=== PATIENT | female | born 1950 | race Caucasian/White ===

== ENCOUNTER 2018-07-29 04:55 | Inpatient (IN) ==
--- NOTE | 2018-07-26 11:07 | Anesthesiology Consultation ---
Date of Service July 26, 2018 Assessment & Plan (1) Encounter for pre-operative examination: - PCP: 07/23/18: Surgeon made aware by PCP of "increased risk for surgery. I recommend tight glycemic control in the perioperative period to prevent infection and complications. Patient has been referred to [facility] diabetes clinic for glucose control but will likely not get established with them until after her surgery. Pending Dr. Carvajal approval for surgery at current A1C, patient is optimized but at high risk for surgery." Per surgeon, aware of above and wish to proceed with surgery as scheduled - Cardio: 07/27/18: chronic stable diastolic heart failure.. well compensated. "low cardiovascular risk. She does not need further testing at this time." - Check BSG AM DOS Chart Review Chart Review: Acceptable Risk for Surgery and Patient seen in Pre Admission Testing Teaching & Discussion Pre-Anesthesia Teaching/Discussion Notes: Instructed NPO after midnight before surgery,except medications with 15 cc of water. Medication instructions provided according to the PAT guidelines. History Surgery Operation Date: 07/29/18 07:15 Proposed Procedures p Left Laparoscopic Hand Assisted Nephrectomy - Marcial Carvajal MD Height/Weight Height: 5 ft 2 in Weight: 117.9 kg Allergies Allergy/AdvReac Type Severity Reaction Status Date / Time bacitracin Allergy SWELLING Verified 07/23/18 14:56 [From Neosporin FROM EYE ([id number])] DROPS neomycin Allergy SWELLING Verified 07/23/18 14:56 [From Neosporin FROM EYE ([id number])] DROPS polymyxin B Allergy SWELLING Verified 07/23/18 14:56 [From Neosporin FROM EYE ([id number])] DROPS Medications Home Medications Medication Instructions Recorded Confirmed Last Taken albuterol sulfate [Ventolin HFA] 2 puff INHALATION Q4H PRN 07/26/18 07/26/18 Unknown amlodipine 5 mg PO DAILY 07/26/18 07/26/18 Unknown ascorbic acid (vitamin C) [Vitamin 1 g PO DAILY 07/26/18 07/26/18 Unknown C] aspirin 81 mg PO DAILY 07/26/18 07/26/18 Unknown calcium carbonate-vitamin D3 1 tab PO DAILY 07/26/18 07/26/18 Unknown [Caltrate 600 + D] ferrous gluconate 324 mg PO DAILY 07/26/18 07/26/18 Unknown fluticasone propionate 1 spray INTRANASAL DAILY 07/26/18 07/26/18 Unknown glimepiride 4 mg PO QAM 07/26/18 07/26/18 Unknown insulin glargine [Lantus U-100 10 unit SUBCUT HS 07/26/18 07/26/18 Unknown Insulin] levothyroxine 125 mcg PO QAM 07/26/18 07/26/18 Unknown liraglutide [Victoza 2-Elliot] 1.2 mg SUBCUT DAILY 07/26/18 07/26/18 Unknown losartan 100 mg PO DAILY 07/26/18 07/26/18 Unknown metformin 1,000 mg PO BID 07/26/18 07/26/18 Unknown naproxen 500 mg PO BID PRN 07/26/18 07/26/18 Unknown rosuvastatin 5 mg PO HS 07/26/18 07/26/18 Unknown torsemide 40 mg PO DAILY 07/26/18 07/26/18 Unknown Past Medical History Medical History CHF (congestive heart failure) DIASTOLIC CKD (chronic kidney disease) BASELINE CREATININE 1.4-1.7 RANGE PER CHART REVIEW Cancer of kidney History of bronchitis NO RECENT ISSUES; INHALER PRN Hyperlipidemia Hypertension Hypothyroidism IDDM (insulin dependent diabetes mellitus) Morbid obesity Past Surgical History Surgical History History of carpal tunnel release S/P trigger finger release Past Anesthesia History No Hx of Anesthesia Complications and No Family Hx of Anesthesia Complications History of PONV No Motion Sickness Screening History of Motion Sickness: No Social History Smoking Status: Former smoker tobacco type: cigarettes Smoking cigarettes per day: QUIT 30 YEARS AGO Do You Dip or Chew Tobacco: No Hx Alcohol Use: No Hx Substance Use: No substance use type: does not use Exercise / Class Metabolic Activity III < 4 Walking/Shop/Light housework Review of Systems Patient denies chest pain, shortness of breath, cough, wheezing, palpitations. Physical Exam Vital Signs VITALS BP 145/78 P 58 TEMP 98.3 SP02 95%RA RESP 18 PHYSICAL Full neck and c-spine range of motion. Full TMJ range of motion. TMD 3 finger breaths Mallampati Score 3 Dentition: full dentures on upper; partial on lower Lungs: clear throughout to auscultation Cardiac: regular rate and rhythm, no murmurs noted Spine: normal Carotid arteries: negative bruit Extremities: no edema Testing Electrocardiogram Date: 07/26/18 Findings: + NSR @ (63) Chest X-Ray Date: 07/26/18 Linear subsegmental right perihilar opacities suggest atelectasis/scarring. Minimal atelectasis/scarring noted about the lateral left midlung. Cardiomegaly without acute process. Chronic right hemidiaphragmatic elevation. Echocardiogram Date: 01/05/17 LVEF 77%. No RWMA. Mild LAE. Grade I-II DD. No significant valvular disease. Laboratory Results 07/26/18 11:20 Blood Type A Positive 07/26/18 11:20 Antibody Screen NEGATIVE 07/26/18 11:20 Urine Color Yellow 07/26/18 11:20 Urine Appearance Clear (Clear) 07/26/18 11:20 Urine pH 5.5 (4.5-7.5) 07/26/18 11:20 Ur Specific [place] 1.012 (1.000-1.030) 07/26/18 11:20 Urine Protein Trace (Negative) H 07/26/18 11:20 Urine Glucose (UA) Negative (Negative) 07/26/18 11:20 Urine Ketones Negative (Negative) 07/26/18 11:20 Urine Nitrite Negative (Negative) 07/26/18 11:20 Ur Leukocyte Esterase 1+ (Negative) H 07/26/18 11:20 Urine WBC (Auto) 5-10 /hpf (0-5) H 07/26/18 11:20 Urine RBC (Auto) 0-4 /hpf (0-4) 07/26/18 11:20 U Hyaline Cast (Auto) 1-5 /lpf (0-5) 07/26/18 11:20 U Epithel Cells (Auto) >30 /lpf (0-5) H 07/26/18 11:20 Urine Bacteria (Auto) Negative (Negative) 07/26/18 11:20 07/26/18 11:20 Urine Culture - Final Urine,Clean Catch More than three types of organisms present, all high co unts mixed probable skin jude - No further identifications or sensitivities to follow. 07/23/18 WBC 8.10 H/H 11.5/36.4 PLT 206 HGBA1C 9.0% (surgeon made aware)
--- NOTE | 2018-07-26 11:15 | PAT Medication Instructions ---
Medication Instructions Date of Service July 26, 2018 Home Medications albuterol sulfate [Ventolin HFA] 2 puff INHALATION Q4H PRN amlodipine 5 mg PO DAILY ascorbic acid (vitamin C) [Vitamin 1 g PO DAILY aspirin 81 mg PO DAILY calcium carbonate-vitamin D3 1 tab PO DAILY ferrous gluconate 324 mg PO DAILY fluticasone propionate 1 spray INTRANASAL DAILY glimepiride4 mg PO QAM insulin glargine [Lantus U-100 10 unit SUBCUT HS levothyroxine 125 mcg PO QAM liraglutide [Victoza 2-Elliot] 1.2 mg SUBCUT DAILY losartan 100 mg PO DAILY metformin 1,000 mg PO BID naproxen 500 mg PO BID PRN rosuvastatin 5 mg PO HS torsemide 40 mg PO DAILY ASK your surgeon for instructions naproxen 500 mg PO BID PRN ASK your prescriber and surgeon aspirin 81 mg PO DAILY DO NOT take the morning of surgery ascorbic acid (vitamin C) [Vitamin 1 g PO DAILY calcium carbonate-vitamin D3 1 tab PO DAILY ferrous gluconate 324 mg PO DAILY glimepiride4 mg PO QAM losartan 100 mg PO DAILY metformin 1,000 mg PO BID torsemide 40 mg PO DAILY Take morning of surgery With a small sip of water, OTHERWISE NOTHING TO EAT OR DRINK AFTER MIDNIGHT: albuterol sulfate [Ventolin HFA] 2 puff INHALATION Q4H PRN (use if needed; please bring with you to hospital day of surgery if possible) amlodipine 5 mg PO DAILY fluticasone propionate 1 spray INTRANASAL DAILY levothyroxine 125 mcg PO QAM liraglutide [Victoza 2-Elliot] 1.2 mg SUBCUT DAILY Take evening before surgery albuterol sulfate [Ventolin HFA] 2 puff INHALATION Q4H PRN (if needed) insulin glargine [Lantus U-100 10 unit SUBCUT HS metformin 1,000 mg PO BID rosuvastatin 5 mg PO HS Other Notes If you have any questions please call us at [phone] or [phone] or [phone] or [phone]
[2018-07-26 12:40] LABS: BUN Creatinine Ratio 22.1 (10-20); Est GFR (African American) 36.9; Est GFR (Non-African American) 31.8; Potassium 4.2 mmol/L (3.5-5.1)
[2018-07-26 12:52] LABS: Appearance Urine Clear (Clear); Bacteria Urine Automated Negative (Negative); Bilirubin Urine Negative (Negative); Blood Urine Negative (Negative); Color Urine Yellow; Epithelial Cell Urine Auto >30 /lpf (0-5); Glucose Urine UA Negative (Negative); Ketones Urine Negative (Negative); Leukocyte Esterase Urine 1+ (Negative); Nitrite Urine Negative (Negative); Protein Urine Trace (Negative); RBC Urine Automated 0-4 /hpf (0-4); Specific Gravity Urine 1.012 (1.000-1.030); Urobilinogen Urine Negative (Negative); pH Urine 5.5 (4.5-7.5)
--- NOTE | 2018-07-27 08:45 | XRay Report ---
XR chest Pre-admission PA/Lat HISTORY: 68 years-old Female pat preoperative exam. No acute chest complaints COMPARISON: Chest CT 06/10/2018 TECHNIQUE: PA and lateral views of the chest FINDINGS: Chronic right hemidiaphragmatic elevation. Cardiac silhouette is enlarged, unchanged. Linear subsegme ntal right perihilar opacities suggest atelectasis/scarring. There is no pneumothorax, pleural effusi on, focal airspace consolidation or overt pulmonary edema. Minimal atelectasis/scarring noted about t he lateral left midlung. Degenerative changes of the shoulders and spine. IMPRESSION: 1. Cardiomegaly without acute process. 2. Chronic right hemidiaphragmatic elevation. The above report was generated using voice recognition software. It may contain grammatical, syntax o r spelling errors. Electronically signed by: Sim Avila M.D. 07/27/2018 8:44 AM
[2018-07-29] MEDS ORDERED: CEFAZOLIN 3000MG 65 ML IV SCH (06:00)
[2018-07-29] MEDS ORDERED: LR 15ML/HR IV SCH (06:00)
[2018-07-29] MEDS ORDERED: ACETAMINOPHEN 1000 MG/100 ML IV IV SCH (06:00)
[2018-07-29] MEDS ORDERED: BUPIVACAINE 0.5 % 5 MG/1 ML MPF 30ML VIAL ONE (06:52)
--- NOTE | 2018-07-29 06:59 | History & Physical Bridge Note ---
Date of Service July 29, 2018 History & Physical Bridge Note I have examined the patient, reviewed the History & Physical and in the interval since the performance of the History & Physical I have noted the following changes of clinical significance: no changes noted
[2018-07-29] MEDS ORDERED: ATROPINE SULFATE 0.1 MG/ML 10ML SYR IV PRN (07:04)
[2018-07-29] MEDS ORDERED: ONDANSETRON INJ 2 MG/ML 2 ML VIAL IV PRN (07:04)
[2018-07-29] MEDS ORDERED: PHENYLEPHRINE 100MCG/ML 5ML SYR IV PRN (07:04)
[2018-07-29] MEDS ORDERED: PROMETHAZINE HCL 12.5 MG in SODIUM CHLORIDE 0.9% 50 ML IV PRN (07:04)
[2018-07-29] MEDS ORDERED: ePHEDrine sulfate 50 MG/ML AMP IV PRN (07:04)
[2018-07-29] MEDS ORDERED: fentaNYL citrate 100 MCG/2 ML VIAL ONE ×2 (07:07→10:02)
[2018-07-29] MEDS ORDERED: LIDOCAINE 2% JELLY 5 ML TUBE ONE (07:17)
[2018-07-29] MEDS ORDERED: TISSEEL FIBRIN SEALANT 10ML TOP ONE (08:21)
[2018-07-29] MEDS ORDERED: ROCURONIUM BROMIDE 10 MG/ML 5 ML VIAL ONE (09:25)
[2018-07-29] MEDS ORDERED: GLYCOPYRROLATE 0.2 MG/ML VIAL ONE (09:25)
[2018-07-29] MEDS ORDERED: ePHEDrine sulfate 50 MG/ML SYR ONE (09:25)
[2018-07-29] MEDS ORDERED: SUCCINYLCHOLINE CHLORIDE 20 MG/ML 10 ML VIAL ONE (09:25)
[2018-07-29] MEDS ORDERED: ONDANSETRON INJ 2 MG/ML 2 ML VIAL ONE (09:25)
[2018-07-29] MEDS ORDERED: LIDOCAINE HCL 2% 2 ML VIAL/AMP(20MG/ML) INFIL ONE (09:25)
[2018-07-29] MEDS ORDERED: NEOSTIGMINE METHYLSULFATE 5 MG/5 ML SYR ONE (09:25)
[2018-07-29] MEDS ORDERED: PROPOFOL IV EMULSION 10 MG/ML 20 ML VIAL IV ONE (09:25)
--- NOTE | 2018-07-29 10:02 | Operative Report ---
Post Operative Report Pre & Post Diagnosis Operation Date: 07/29/18 07:15 Pre-Op Diagnosis: Left Renal Mass Post-Op Diagnosis: Left Renal Mass Procedure Operation Date: 07/29/18 07:15 Actual Procedures p Left Laparoscopic Hand Assisted Readical Nephrectomy, Retroperitoneal Dissection(Left) - Marcial Carvajal MD Surgeon Marcial Carvajal MD [employer] Entry JOHN Duran Estimated Blood Loss 50 Findings Consistent with Post-Op Diagnosis Specimens L kidney, L retroperitoneal tissue Description of Procedure Left hand assisted lap nephrectomy, left retroperitoneal dissection I attest to the content of the Intraoperative Record and any orders documented therein. Any exceptions are noted below.
[2018-07-29] MEDS ORDERED: NovoLIN-R INSULIN PER UNIT CHARGE ONE (10:21)
[2018-07-29] MEDS: fentaNYL citrate 100 MCG/2 ML VIAL IV PRN ×4 (10:24→10:40)
[2018-07-29] MEDS ORDERED: NovoLIN-R INSULIN PER UNIT CHARGE IV STA (10:28)
[2018-07-29] MEDS ORDERED: NovoLIN-R INSULIN PER UNIT CHARGE SQ STA (10:28)
[2018-07-29 10:53] LABS: Hematocrit (blood only) 30.7 % (37-47); Hemoglobin 10.1 g/dL (12.0-16.0); Mean Corpuscular Volume 88.2 fL (80-100); Mean Platelet Volume 10.2 fL (7.4-10.4); Platelet Count 179 K/uL (130-400); RDW Coefficient of Variation 13.8 % (11.5-14.5); RDW Standard Deviation 44.8 fL (36.4-46.3); Red Blood Count 3.48 M/uL (4.2-5.4); White Blood Count 14.36 K/uL (4.8-10.8)
[2018-07-29] MEDS: HYDROmorphone INJ 1 MG/ML SYRINGE IV PRN ×6 (10:54→11:25)
[2018-07-29 10:59] LABS: Mean Corpuscular Hgb Conc 32.9 g/dL (32-36)
[2018-07-29 11:19] LABS: BUN Creatinine Ratio 20.4 (10-20); Calcium 9.3 mg/dl (8.5-10.1); Creatinine Clr Calc Pharmacy 40.4 ml/min; Est GFR (African American) 33.8; Est GFR (Non-African American) 29.2
[2018-07-29 11:28] LABS: Basophils # (auto) 0.01 K/uL (0-0.2); Basophils % (auto) 0.1 %; Eosinophils # (auto) 0.05 K/uL (0-0.5); Eosinophils % (auto) 0.3 %; Immature Granulocytes # (auto) 0.05 K/uL (0.00-0.02); Immature Granulocytes % (auto) 0.3 %; Lymphocytes # (auto) 1.89 K/uL (1.2-3.4); Lymphocytes % (auto) 13.2 %; Monocytes # (auto) 0.52 K/uL (0.11-0.59); Monocytes % (auto) 3.6 %; Neutrophils # (auto) 11.84 K/uL (1.4-6.5); Neutrophils % (auto) 82.5 %
[2018-07-29] MEDS ORDERED: ALBUTEROL HFA 8 GM INHALER INH PRN (11:44)
[2018-07-29] MEDS ORDERED: ACETAMINOPHEN 1,000 MG/100 ML VIAL IV PRN (11:44)
[2018-07-29] MEDS ORDERED: OXYCODONE HCL IR 5 MG TAB (IMMEDIATE RELEASE) PO PRN (11:44)
[2018-07-29] MEDS ORDERED: NALOXONE HCL 0.4 MG/1 ML VIAL/CARP IV PRN (11:44)
[2018-07-29] MEDS ORDERED: PHARMACY GLYCEMIC MGMT CONSULT PRN (12:12)
--- NOTE | 2018-07-29 12:33 | Anesthesiology Progress Note ---
Date of Service July 29, 2018 Anesthesia Post Procedure Vital Signs Vital Signs: Temp Pulse Pulse Resp BP BP Pulse Ox 07/29/18 12:24 36.5 C 54 L 16 137/76 96 07/29/18 11:55 36.5 C 53 L 18 141/83 H 93 07/29/18 10:42 44 L 15 147/62 H 90 07/29/18 10:40 52 L 14 99 07/29/18 10:36 46 L 21 115/40 L 95 07/29/18 10:35 62 21 07/29/18 10:32 51 L 21 127/46 L 94 07/29/18 10:30 60 25 H 99 07/29/18 10:26 49 L 14 137/48 L 97 07/29/18 10:25 57 L 18 95 07/29/18 10:21 61 28 H 127/74 95 07/29/18 10:20 62 21 07/29/18 10:16 77 18 130/68 100 07/29/18 10:15 65 23 97 07/29/18 10:14 36.6 C 68 67 22 149/88 H 149/88 H 99 07/29/18 10:13 67 22 07/29/18 05:52 36.9 C 70 20 180/75 H 97 Pain Intensity Left Lateral Abdomen: Pain Intensity: 7 Notes Mental Status: alert / awake / arousable Patient Amnestic to Procedure: Yes Nausea / Vomiting: adequately controlled Pain: adequately controlled Airway Patency, RR, SpO2: stable & adequate BP & HR: stable & adequate Hydration State: stable & adequate Anesthetic Complications: no major complications apparent Notes: Pt doing well. BG improved after 5 units of regular insulin. VSS.
--- NOTE | 2018-07-29 12:40 | Pharmacy Report ---
Glycemic Control Consultation - Date of Service July 29, 2018 - Scope Scope: Glycemic Pharmacist consulted by JOHN Roth on 07/29/18 for glycemic control and to write orders per [facility] inpatient glycemic control protocol - Objective Weight: 133.838 kg Accuchecks BSG (last 24hrs): 07/29/18 07/29/18 07/29/18 05:46 10:17 10:30 Glucose 219 H POC Glucose 173 H 244 H 07/29/18 11:20 Glucose POC Glucose 240 H Laboratory Data (last 24hrs): 07/29/18 10:30 Potassium 4.0 Carbon Dioxide 25 Anion Gap 9.0 Creatinine 1.76 H Est Cr Clr Drug Dosing 40.4 - Recent Pertinent Medications Outpatient Anti-diabetic Regimen: * Lantus 10 units SQ HS * Victoza 1.2mg SQ Daily * Metformin 1g PO BID * Glimepiride 4mg PO daily * A1c ordered Risk Factors for Insulin Resistance: * Recent Surgery: s/p nephrectomy * Diet:Clear liquid - Assessment & Plan Assessment & Plan: ASSESSMENT: * 68 year old female, s/p nephrectomy and hyperglycemic. Type 2 diabetic on orals and insulin and injectable antidiabetic medications at home. Patient on clear liquid diet. * Patient given 5 units Regular insulin IV at 1030- no change in blood sugar * Patient requires basal bolus insulin, will do tight CF and CR to begin based on weight for hyperglycemia not responding to IV insulin * Oral agents are not recommended for inpatient use d/t drug interactions, changing PO intake, and difficulty titrating for acute hyper/hypoglycemia. ADA recommends re-initiating outpatient oral agents 1-2 days prior to discharge if/when appropriate if they were held on admission. * ADA & AACE recommend a goal blood sugar range 140-180 mg/dl for the majority of critically ill & non-critically ill patients. However, more stringent targets may be selected in individual cases. Will utilize more stringent goal of 110-140mg/dl based on patient age & comorbidities. Additionally, tighter glycemic control is warranted to facilitate wound/infection healing. PLAN FOR INPATIENT GLYCEMIC CONTROL: * Holding outpatient oral diabetes medications * Basal insulin * Lantus 10 units SQ HS and an additional dose x1 NOW * Bolus insulin * NovoLog per scale ACHS or Q6hrs while NPO * Goal Range: Low 110 mg/dL - High 140 mg/dL * Correction Factor: 15 mg/dL/unit * Nutritional / Prandial insulin per carb ratio of 1 unit per 5 grams CHO consumed * Please note that the plan above was derived based on current level of insulin resistance and hospital stress. These recommendations are appropriate for inpatient admission only. Plan of care upon discharge will need to be reassessed to avoid potential outpatient hypo/hyperglycemia. Thank you.
[2018-07-29] MEDS: LACTATED RINGER'S 1,000 ML IV SCH ×2 (12:44→20:52)
[2018-07-29] MEDS ORDERED: CARBOHYDRATES FOR HYPOGLYCEMIA PO PRN (12:45)
[2018-07-29] MEDS ORDERED: GLUCOSE 10 TABS/TUBE PO PRN (12:45)
[2018-07-29] MEDS ORDERED: GLUCOSE 40% GEL 15 GM TUBE PO PRN (12:45)
[2018-07-29] MEDS: SODIUM CHLORIDE 0.9% 1000ML 1,000 ML IV SCH (12:45)
[2018-07-29] MEDS ORDERED: DEXTROSE 50% 50 ML SYRINGE IV PRN (12:45)
[2018-07-29] MEDS ORDERED: GLUCAGON FOR INJ 1 MG VIAL IM PRN (12:45)
[2018-07-29] MEDS ORDERED: INSULIN GLARGINE SOLOSTAR 100 UNITS/ML 3 ML PEN SC ONE (12:45)
[2018-07-29] MEDS ORDERED: COUGH DROP (SUGAR FREE) LOZ 24 LOZ/1 BOX BUCCAL ONE (12:54)
[2018-07-29 13:02] LABS: Partial Thromboplastin Ratio 0.8; Prothrombin Time 10.5 Seconds (9.0-12.0)
--- NOTE | 2018-07-29 13:14 | Operative Report ---
DATE OF OPERATION: 07/29/2018 PREOPERATIVE DIAGNOSIS: Left central, 7 cm renal mass with bony lesions, no cancer in bone on biopsy. POSTOPERATIVE DIAGNOSIS: Left central, 7 cm renal mass with bony lesions, no cancer in bone on biopsy. PROCEDURES: Left-sided hand-assisted laparoscopic radical nephrectomy and retroperitoneal dissection. SURGEON: Marcial Carvajal MD PORTABLE SAWMILL OPERATOR: JOHN Roth. Charge Loader is present throughout the case for management of the laparoscopic camera, passage of instruments, retraction and assistance with closure as well as general patient's safety. ESTIMATED BLOOD LOSS: 50 mL. IV FLUIDS: 1200 mL crystalloid. URINE OUTPUT: 75 mL. SPECIMENS SENT TO PATHOLOGY: Left kidney and proximal ureter, left retroperitoneal tissue. DRAINS LEFT IN PLACE: Include a Garcia catheter to gravity drainage. ANESTHESIA: General anesthesia with endotracheal intubation plus local at port sites. FINDINGS: Excellent hemostasis after completion of case, indurated left lower pole of kidney. Well-skeletonized external iliac and retroperitoneal plane of dissection after completion of case. COMPLICATIONS: None. BRIEF HISTORY: Ms. Benitez is a pleasant 68-year-old female who I have seen due to a recent diagnosis of a large left lower pole renal mass felt to be suspicious for renal cell carcinoma invading a segmental vessels but without clear renal vein involvement. The patient is also noted to have bony lesions which were felt to be suspicious for metastasis on CT scan and bone scan. A CT scan of the chest demonstrated 5 mm nodules, not overly suspicious for metastasis. The patient underwent a biopsy of her bone lesions at an outside center which demonstrated no evidence of viable carcinoma. She is here today for a left-sided hand-assisted laparoscopic radical nephrectomy. She understands that it is still quite possible that she has metastatic disease to the bone in which case nephrectomy would still be indicated in a debulking fashion. Please see H and P for further details. Intravenous Ancef is provided for antibiotic coverage and SCDs used for DVT prophylaxis. Intravenous Tylenol was provided preoperatively to assist with perioperative analgesia. DESCRIPTION OF PROCEDURE: The patient was properly identified and brought into the operative suite after identification of appropriate consent on the chart. General anesthesia with endotracheal intubation was initiated. The patient was prepped and draped in standard fashion for this procedure. frame hand-out procedure was followed. All pressure points were gently padded and an axillary roll was placed. A Mireles incision was made in the left lower quadrant and brought down through the patient's copious subcutaneous tissues to the fascia of the external oblique. This was divided and the abdomen was sharply entered at the level of the peritoneum using Metzenbaum scissors and DeBakey forceps. No evidence of any injury to the bowel was appreciated on entry to the abdominal cavity. The remaining incision was extended over the surgeon's finger and a GelPort hand-assisted port was placed. Abdomen was insufflated through the Gelport and a laparoscopic examination was performed. This demonstrated no worrisome anatomic variations or evidence of metastatic disease. No intraabdominal adhesions were noted. Two 12 mm ports were placed in the midclavicular line and dissection was initiated. The white line of Toldt was incised laterally to allow for medial mobilization of the descending colon. Lateral attachments of the spleen were taken to allow for medial mobilization as well. The retroperitoneum was exposed and the ureter was identified at the level where crossed the iliac vessels. Iliacs were noted to be a relatively bear after completion with all the tissue associated with the common and external iliacs being incorporated with the patient's specimen. Dissection was carried cephalad until a single renal artery and vein were visualized. The renal vein was very closely inspected and noted to have no evidence of any tumor thrombus within it. Attempts at dissecting the artery free from the vein met with resistance due to dense adhesive tissues at the level of the hilum. After this was attempted for some time, it was felt to be safer to take the hilum en bloc. Again, lack of renal vein thrombus was appreciated. Hilum was circumscribed and taken using a 45 mm vascular staple load. After this was complete, the lateral aspects of the kidney were dissected free using a Harmonic scalpel. The plane of dissection was carried over the cephalad aspect of the kidney and a vascular staple load was used to free the adrenal gland from the kidney seeing that there was no upper pole involvement from the patient's malignancy. After the remaining cephalad attachments were taken, attention was turned to the ureter and gonadal vessels. These were clipped and divided with the remaining fatty tissue being divided using the Harmonic scalpel. This was taken relatively deep within the pelvis seeing the patient's small internal body stature. The kidney was then removed from the surgical field and passed off for pathologic analysis. Abdomen was inspected and the patient's pelvic dissection was noted to demonstrate no significant residual fatty tissue or retroperitoneal tissue. It was suspected that the keith tissue had been taken in association with the specimen. At the level of the aorta, inferior to the hilum, some remaining retroperitoneal fatty/keith tissue was noted. Using clips and the Harmonic scalpel, this was dissected free from the hilar bed and sent as a separate pathologic specimen for a left retroperitoneal tissue. After this was complete, excellent hemostasis was visualized. The surgical field including the adrenal bed and renal hilum as well as the plane of dissection, the ureter were covered with Tisseel tissue sealant. The colon and spleen were then returned to their normal anatomic locations. Ports and hand port were removed and excess carbon dioxide gas was removed from the abdomen. The 12 mm ports were closed using a 0 Vicryl suture on a UR-6 needle at the level of the fascia. The hand port was closed after removing of flexion from the table in 2 layers with an 0 Vicryl suture being used on the deep layers of the abdominal musculature and a #1 Vicryl suture being used at the fascia of the external oblique. The patient's inferior epigastric vessel was noted to be minimally lacerated and bleeding intermittently and therefore this was tied off using 2-0 Vicryl sutures prior to completion of the closure. Remaining local anesthetic was provided and the subcutaneous tissues were closed using a 3-0 Vicryl suture. Skin was closed using 4-0 Monocryl with Dermabond at the level of the skin. The patient was replaced in a normal supine position and anesthesia was reversed. The patient was transferred to the recovery room in stable condition. FOLLOWUP CARE: The patient will be admitted to the floor for standard postoperative management. I attest to the content of the Intraoperative Record and any orders documented therein. Any exception s are noted below.
[2018-07-29] MEDS: INSULIN ASPART 100 UNITS/ML 3 ML PEN SC SCH ×3 (13:50→21:30)
[2018-07-29] MEDS: HYDROmorphone INJ 0.5 MG/0.5 ML SYR IV PRN (13:54)
--- NOTE | 2018-07-29 14:38 | Consultation Report ---
DATE OF ADMISSION: 07/29/2018 CHIEF COMPLAINT: Status post left nephrectomy. HISTORY OF PRESENT ILLNESS: This is a 68-year-old female with past medical history significant for type 2 diabetes, diabetic retinopathy, hyperlipidemia, hypertension, diastolic CHF, chronic kidney stage III, morbid obesity, left renal mass, osteoarthritis, macular degeneration, normocytic anemia, history of tobacco abuse, history of spinal stenosis, status post left nephrectomy for left renal mass, tolerated the procedure okay, complains of pain at the surgical site. No fever, no chills, no nausea, no chest pain, no shortness of breath, no cough. Trying to eat liquid diet. No feeling of hot or cold. Hemodynamically stable. ALLERGIES: BACTRIM, NEOMYCIN, POLYMYXIN. PAST MEDICAL HISTORY: As mentioned above. PAST SURGICAL HISTORY: Status post left nephrectomy, carpal tunnel surgery on the right side, cystoscopy, stone removal, left long tendon sheath incision, right tendon sheath incision. MEDICATIONS: The patient is on Crestor 5 mg p.o. at bedtime, Flonase nasal spray daily, torsemide 40 mg daily, amlodipine 5 mg p.o. daily, Lantus 10 units under skin at bedtime, Victoza 0.6 mg under skin daily, Cozaar 100 mg p.o. daily, glimepiride 4 mg p.o. daily with breakfast, metformin 1000 mg p.o. b.i.d., levothyroxine 125 mcg p.o. daily, vitamin C 500 mg p.o. daily, ferrous sulfate 325 mg p.o. daily, aspirin 81 mg p.o. daily, Caltrate 600 plus D 1 tablet daily. FAMILY HISTORY: Significant for daughter who has arthritis. Mother has migraines, heart disorder. Brother has heart disease. Sister has heart disease and lung disorder. SOCIAL HISTORY: Former smoker, quit in 1988, smoked about upc-dmx-v-half pack a day for 15 years. No alcohol use, no drug use. . REVIEW OF SYMPTOMS: As per HPI. Rest of review of systems is negative. PHYSICAL EXAMINATION: GENERAL: The patient is obese, not in acute distress. VITAL SIGNS: Temperature 36.5, pulse 52, respiratory rate 16, blood pressure 133/57, oxygen 95% on 2lts. HEENT: No pallor, no icterus. NECK: No JVD, no neck mass, no carotid bruits. CARDIOVASCULAR: S1, S2 heard, regular rate and rhythm, no murmur, no gallop. RESPIRATORY SYSTEM: Normal AP diameter. No accessory muscle use. No wheezing, no crackles. ABDOMEN: Soft, bowel sounds present. Laparoscopic incision sites, no drainage seen. EXTREMITIES: No edema. LABORATORY DATA: WBC 14, hemoglobin 10.1, hematocrit 38.7, platelets 179. PT 10.5, INR 1, APTT 22. Sodium 136, potassium 4, chloride 102, bicarb 25, BUN 36, creatinine 1.76, glucose 219, calcium 9.3. Chest x-ray, cardiomegaly without acute process. EKG: Normal sinus rhythm with rate of 63, nonspecific ST abnormalities. ASSESSMENT AND PLAN: This is a 68-year-old female, status post left nephrectomy, 1. Left renal mass, status post left nephrectomy. Further management as per urology. 2. Type 2 diabetes. We will hold her home metformin, Victoza and glimepiride. Continue her home Lantus 10 units at bedtime and place on insulin sliding scale. Follow HbA1c level. Follow blood sugars closely and adjust the insulin regimen. 3. Hypothyroidism. Continue Synthroid. 4. Hyperlipidemia. Continue statin. 5. Hypertension. Continue amlodipine and losartan. Monitor the blood pressure. 6. Diastolic congestive heart failure, currently seems to be stable. Monitor volume overload. Torsemide is on hold. Restart torsemide possibly in am. 7. Deep venous thrombosis and disposition as per urology. [facility]
[2018-07-29] MEDS ORDERED: INSULIN ASPART 100 UNITS/ML 3 ML PEN SC SCH (16:30)
[2018-07-29] MEDS: HYDROmorphone HCL 0.5MG/ML 50 ML CASSETTE IV PRN (16:32)
[2018-07-29] MEDS: CEFAZOLIN 2000MG 2,000 MG/15 ML SYR IV SCH ×2 (16:56→23:33)
[2018-07-29] MEDS ORDERED: INSULIN GLARGINE SOLOSTAR 100 UNITS/ML 3 ML PEN SC SCH (21:00)
[2018-07-29] MEDS: HEPARIN SOD 5,000 UNIT/0.5 ML VIAL SQ SCH (21:33)
[2018-07-29] MEDS: FAMOTIDINE 20 MG in SYRINGE 3 ML IV SCH (21:34)
[2018-07-29] MEDS: DOCUSATE SODIUM 100 MG CAP PO SCH (21:34)
[2018-07-29] MEDS: ROSUVASTATIN CALCIUM 5 MG TAB PO SCH (21:34)
[2018-07-30] MEDS: LACTATED RINGER'S 1,000 ML IV SCH ×3 (04:40→21:34)
[2018-07-30] MEDS: LEVOTHYROXINE SODIUM 125 MCG TABLET PO SCH (04:41)
[2018-07-30 05:51] LABS: Basophils # (auto) 0.02 K/uL (0-0.2); Basophils % (auto) 0.2 %; Hematocrit (blood only) 31.8 % (37-47); Hemoglobin 10.6 g/dL (12.0-16.0); Immature Granulocytes # (auto) 0.03 K/uL (0.00-0.02); Immature Granulocytes % (auto) 0.3 %; Lymphocytes # (auto) 1.52 K/uL (1.2-3.4); Lymphocytes % (auto) 15.9 %; Mean Corpuscular Hgb Conc 33.3 g/dL (32-36); Mean Corpuscular Volume 88.3 fL (80-100); Mean Platelet Volume 10.3 fL (7.4-10.4); Monocytes # (auto) 0.88 K/uL (0.11-0.59); Monocytes % (auto) 9.2 %; Neutrophils # (auto) 7.02 K/uL (1.4-6.5); Neutrophils % (auto) 73.4 %; Platelet Count 153 K/uL (130-400); RDW Coefficient of Variation 13.9 % (11.5-14.5); RDW Standard Deviation 44.6 fL (36.4-46.3); White Blood Count 9.57 K/uL (4.8-10.8)
[2018-07-30 06:24] LABS: BUN Creatinine Ratio 15.9 (10-20); Calcium 8.9 mg/dl (8.5-10.1); Creatinine Clr Calc Pharmacy 35.2 ml/min; Est GFR (African American) 28.7; Est GFR (Non-African American) 24.7; Potassium 3.6 mmol/L (3.5-5.1)
[2018-07-30 06:37] LABS: Estimated Average Glucose 206 mg/dl; Hemoglobin A1C 8.8 % (4.5-5.6)
[2018-07-30] MEDS: CEFAZOLIN 2000MG 2,000 MG/15 ML SYR IV SCH (07:49)
--- NOTE | 2018-07-30 07:51 | Anesthesiology Progress Note ---
Date of Service July 30, 2018 Anesthesia Post Procedure Vital Signs Vital Signs: Temp Pulse Pulse Resp BP BP Pulse Ox 07/30/18 03:12 36.4 C L 63 14 128/66 98 07/29/18 23:10 36.6 C 100 H 14 142/76 H 93 07/29/18 20:10 36.5 C 52 L 18 150/61 H 100 07/29/18 19:03 36.4 C L 66 16 119/70 100 07/29/18 18:21 36.5 C 47 L 18 127/71 100 07/29/18 15:06 36.5 C 50 L 16 148/68 H 97 07/29/18 13:55 36.6 C 61 16 121/58 L 97 07/29/18 12:55 52 L 16 133/57 L 95 07/29/18 12:24 36.5 C 54 L 16 137/76 96 07/29/18 11:55 36.5 C 53 L 18 141/83 H 93 07/29/18 10:42 44 L 15 147/62 H 90 07/29/18 10:40 52 L 14 99 07/29/18 10:36 46 L 21 115/40 L 95 07/29/18 10:35 62 21 07/29/18 10:32 51 L 21 127/46 L 94 07/29/18 10:30 60 25 H 99 07/29/18 10:26 49 L 14 137/48 L 97 07/29/18 10:25 57 L 18 95 07/29/18 10:21 61 28 H 127/74 95 07/29/18 10:20 62 21 07/29/18 10:16 77 18 130/68 100 07/29/18 10:15 65 23 97 07/29/18 10:14 36.6 C 68 67 22 149/88 H 149/88 H 99 07/29/18 10:13 67 22 Pain Intensity Left Lateral Abdomen: Pain Intensity: 6 Notes Mental Status: alert / awake / arousable and participated in evaluation Patient Amnestic to Procedure: Yes Nausea / Vomiting: adequately controlled Pain: improving with treatment Airway Patency, RR, SpO2: stable & adequate BP & HR: stable & adequate Hydration State: stable & adequate Anesthetic Complications: no major complications apparent and Pt Satisfied with anesthetic care
--- NOTE | 2018-07-30 08:15 | Urology Progress Note ---
Date of Service July 30, 2018 Assessment & Plan (1) Left renal mass: A/P 68 yo female POD#1 s/p L HALN. Will leave on clears until GI function improves. Hb stable, appropriate rise in Cr - will monitor for plateau. Appreciate hospitalist input. Increase activity - ambulate in hallways, PT consult. May shower. May HTIVF with ambulation and shower. Will continue Dilaudid NETWORK DIRECTOR for now until pain control improves. Leave IVF in place until PO intake improves. Findings and plan reviewed with patient who vocalizes understanding. (2) Renal insufficiency: Await nephrology evaluation. Will defer management of diuretics to their service. Subjective 68 yo female POD#1 s/p L HALN. She is OOBTC, no ambulation yet. She notes bothersome incisional pain, partially controlled with Dilaudid NETWORK DIRECTOR. Garcia in pl janiya, taking clears with belching, no emesis, fullness, - flatus or BM. Labwork noted, no other events, hospitalist consult appreciated, nephrology evaluation pending. Constitutional: + fatigue; no fever and no chills Eyes: no diplopia Ear, Nose, Mouth, Throat: no ear trauma Respiratory: no hemoptysis Cardiovascular: no chest pain Gastrointestinal: + abdominal pain and + belching; no vomiting Genitourinary (Female): no hematuria Integumentary: no acne and no boil Neurologic: no paralysis and no numbness Psychiatric: no hopelessness Endocrine: + fatigue Physical Exam Vital Signs (Past 24 Hours): Last Vital Signs Temp 36.5 C 07/30/18 07:56 Pulse 72 07/30/18 07:56 Resp 16 07/30/18 07:56 BP 149/77 H 07/30/18 07:56 Pulse Ox 98 07/30/18 07:56 Constitutional: + morbidly obese ENMT: Ears: no external ear abnormality Neck: trachea midline; no anterior neck swelling Respiratory: no respiratory distress and no labored breathing Cardiovascular: Vessels: radial pulses present Gastrointestinal (Abdomen): Percussion/Palpation: abdomen soft; abdomen nontender and no guarding inc c/d/i Skin: normal turgor Neurologic: CN's II-XI intact bilaterally and awake; not obtunded Psychiatric: Orientation: oriented x 3 Lymphatic: no lymphadenopathy Results & Data Laboratory Results Laboratory Results - last 48 hr 07/29/18 07/29/18 07/29/18 05:46 10:17 10:30 WBC 14.36 H RBC 3.48 L Hgb 10.1 L Hct 30.7 L MCV 88.2 MCH 29.0 MCHC 32.9 RDW Std Deviation 44.8 RDW Coeff of Mary Jo 13.8 Plt Count 179 MPV 10.2 Immature Gran % (Auto) 0.3 Neut % (Auto) 82.5 Lymph % (Auto) 13.2 [place] % (Auto) 3.6 Eos % (Auto) 0.3 Baso % (Auto) 0.1 Immature Gran # (Auto) 0.05 H Neut # (Auto) 11.84 H Lymph # (Auto) 1.89 [place] # (Auto) 0.52 Eos # (Auto) 0.05 Baso # (Auto) 0.01 PT INR APTT PTT Ratio Sodium Potassium Chloride Carbon Dioxide Anion Gap BUN Creatinine Est Cr Clr Drug Dosing Est GFR ( Amer) Est GFR (Non-Af Amer) BUN/Creatinine Ratio Glucose POC Glucose 173 H 244 H Estimat Average Glucose Hemoglobin A1c Calcium 07/29/18 07/29/18 07/29/18 10:30 11:20 12:31 WBC RBC Hgb Hct MCV MCH MCHC RDW Std Deviation RDW Coeff of Mary Jo Plt Count MPV Immature Gran % (Auto) Neut % (Auto) Lymph % (Auto) [place] % (Auto) Eos % (Auto) Baso % (Auto) Immature Gran # (Auto) Neut # (Auto) Lymph # (Auto) [place] # (Auto) Eos # (Auto) Baso # (Auto) PT 10.5 INR 1.0 APTT 22.0 PTT Ratio 0.8 Sodium 136 Potassium 4.0 Chloride 102 Carbon Dioxide 25 Anion Gap 9.0 BUN 36 H Creatinine 1.76 H Est Cr Clr Drug Dosing 40.4 Est GFR ( Amer) 33.8 Est GFR (Non-Af Amer) 29.2 BUN/Creatinine Ratio 20.4 H Glucose 219 H POC Glucose 240 H Estimat Average Glucose Hemoglobin A1c Calcium 9.3 07/29/18 07/29/18 07/29/18 12:37 17:04 20:48 WBC RBC Hgb Hct MCV MCH MCHC RDW Std Deviation RDW Coeff of Mary Jo Plt Count MPV Immature Gran % (Auto) Neut % (Auto) Lymph % (Auto) [place] % (Auto) Eos % (Auto) Baso % (Auto) Immature Gran # (Auto) Neut # (Auto) Lymph # (Auto) [place] # (Auto) Eos # (Auto) Baso # (Auto) PT INR APTT PTT Ratio Sodium Potassium Chloride Carbon Dioxide Anion Gap BUN Creatinine Est Cr Clr Drug Dosing Est GFR ( Amer) Est GFR (Non-Af Amer) BUN/Creatinine Ratio Glucose POC Glucose 228 H 185 H 191 H Estimat Average Glucose Hemoglobin A1c Calcium 07/30/18 07/30/18 07/30/18 05:35 05:35 05:35 WBC 9.57 RBC 3.60 L Hgb 10.6 L Hct 31.8 L MCV 88.3 MCH 29.4 MCHC 33.3 RDW Std Deviation 44.6 RDW Coeff of Mary Jo 13.9 Plt Count 153 MPV 10.3 Immature Gran % (Auto) 0.3 Neut % (Auto) 73.4 Lymph % (Auto) 15.9 [place] % (Auto) 9.2 Eos % (Auto) 1.0 Baso % (Auto) 0.2 Immature Gran # (Auto) 0.03 H Neut # (Auto) 7.02 H Lymph # (Auto) 1.52 [place] # (Auto) 0.88 H Eos # (Auto) 0.10 Baso # (Auto) 0.02 PT INR APTT PTT Ratio Sodium 133 L Potassium 3.6 Chloride 99 Carbon Dioxide 29 Anion Gap 5.0 BUN 32 H Creatinine 2.02 H Est Cr Clr Drug Dosing 35.2 Est GFR ( Amer) 28.7 Est GFR (Non-Af Amer) 24.7 BUN/Creatinine Ratio 15.9 Glucose 121 H POC Glucose Estimat Average Glucose 206 Hemoglobin A1c 8.8 H Calcium 8.9
[2018-07-30] MEDS: INSULIN ASPART 100 UNITS/ML 3 ML PEN SC SCH ×4 (08:55→21:31)
[2018-07-30] MEDS ORDERED: LOSARTAN POTASSIUM 50 MG TAB PO SCH (09:00)
[2018-07-30] MEDS: FERROUS GLUCONATE 324 MG TAB PO SCH (09:12)
[2018-07-30] MEDS: DOCUSATE SODIUM 100 MG CAP PO SCH ×2 (09:13→21:19)
[2018-07-30] MEDS: CALCIUM 600MG + VIT D 400 IU TAB PO SCH (09:13)
[2018-07-30] MEDS: AMLODIPINE BESYLATE 5 MG TAB PO SCH (09:13)
[2018-07-30] MEDS: ASCORBIC ACID 500 MG TAB PO SCH (09:14)
[2018-07-30] MEDS: FAMOTIDINE 20 MG in SYRINGE 3 ML IV SCH ×2 (09:33→21:37)
[2018-07-30] MEDS: HEPARIN SOD 5,000 UNIT/0.5 ML VIAL SQ SCH ×2 (09:33→21:19)
[2018-07-30] MEDS: ONDANSETRON INJ 2 MG/ML 2 ML VIAL IV PRN (09:37)
[2018-07-30] MEDS: SODIUM CHLORIDE 0.9% 1000ML 1,000 ML IV SCH (12:09)
--- NOTE | 2018-07-30 12:51 | Hospitalist Progress Note ---
Date of Service July 30, 2018 Subjective CKD stage 3 Cr usually 1.3 to 1.4 but lately 1.6. Will follow labs Physical Exam Vital Signs (Past 24 Hours): Last Vital Signs Temp 36.9 C 07/30/18 12:06 Pulse 70 07/30/18 12:06 Resp 19 07/30/18 12:06 BP 142/82 H 07/30/18 12:06 Pulse Ox 97 07/30/18 12:06
[2018-07-30] MEDS ORDERED: INSULIN GLARGINE SOLOSTAR 100 UNITS/ML 3 ML PEN SC STA (13:52)
--- NOTE | 2018-07-30 14:14 | Pharmacy Report ---
Glycemic Control Progress Note - Date of Service July 30, 2018 - Scope Glycemic Pharmacist consulted for glycemic control to write orders per [facility] inpatient glycemic control protocol. - Objective Accuchecks BSG(last 24 hours):: 07/29/18 07/29/18 07/30/18 17:04 20:48 05:35 Glucose 121 H POC Glucose 185 H 191 H 07/30/18 07/30/18 08:17 12:15 Glucose POC Glucose 149 H 202 H HbA1c:: Hemoglobin A1c 8.8 % (4.5-5.6) H 07/30/18 05:35 - Recent Pertinent Medications The patient is currently receiving: * Basal insulin: Lantus 10 units every 24 hours * Correctional Insulin: Novolog Correction per scale ACHS Goal Range: Low 110 mg/dL - High 140 mg/dL Correction Factor: 15 mg/dL/unit * Prandial insulin: Per carb ratio of 1 unit per 5 grams CHO consumed - Outpatient Anti-Diabetic Meds Metformin 1000mg BID + Glimepiride 4mg qAM Lantus 10 units HS Victoza SC 1.2mg/dL daily - Assessment & Plan ASSESSMENT: * See progress note from 07/29/18 for more background info, in short: 68 y/o admitted s/p nephrectomy. Recent HbA1c 8.8% shows poorly controlled diabetes on multiple oral and injectable diabetic medications. * Pt receiving SQ basal bolus insulin regimen for hyperglycemia secondary to baseline DM (outpatient regimen on hold), recent surgery * Patient is currently receiving an average of 33 units of insulin per day * 20 units of basal insulin * 13 units of prandial/correctional insulin * BSGs ranging 121 - 244 mg/dl over the past 24hrs * Changes needed to insulin regimen: * AM Fasting BSG = 149 mg/dl. This is in slightly above goal range for patient based on inpatient targets and co-morbidities. Therefore Basal insulin needs increased. * Post-prandial BSGs are elevated/BSGs rise throughout the day therefore need to tighten CF/CR. BG was 149 this AM, but incr' to 202 pre-lunch, therefore CF inadequate. PLAN FOR INPATIENT GLYCEMIC CONTROL: * Oral Agents * Continue to hold outpatient oral diabetes medications. * Basal insulin * Lantus 5 units x 1 now * Lantus per scale HS (10 units if <120 mg/dL, 15 units if 121-180 mg/dL, 20 units if >180 mg/dL) - INCREASE * Bolus insulin * NovoLog per scale ACHS or Q6hrs while NPO * Goal Range: Low 110 mg/dL - High 140 mg/dL * Correction Factor: 12 mg/dL/unit - TIGHTEN * Nutritional / Prandial insulin per carb ratio of 1 unit per 5 grams CHO consumed RECOMMENDATIONS FOR DISCHARGE: * Diabetes is not well controlled. Patient is on a very low dose of Lantus as an outpatient, likely inadequate based on her weight. Recommend to titrate and follow up with outpatient provider. * Please note that the plan above was derived based on current level of insulin resistance and hospital stress. These recommendations are appropriate for inpatient admission only. Plan of care upon discharge will need to be reassessed to avoid potential outpatient hypo/hyperglycemia. Thank you.
[2018-07-30] MEDS: HYDROmorphone HCL 0.5MG/ML 50 ML CASSETTE IV PRN ×2 (15:18→23:12)
--- NOTE | 2018-07-30 16:34 | Hospitalist Progress Note ---
Date of Service July 30, 2018 Assessment & Plan (1) Left renal mass: S/P day 1 Left-sided hand-assisted laparoscopic radical nephrectomy and retroperitoneal dissection by Dr. Carvajal Continue pain control Incentive spirometry Hbg stable Acute on chronic CKD stage 3 Creatinine increased to 2.02 Avoid nephrotoxic agents Continue IVF Nephrology consulted- waiting for input Type 2 diabetes. Metformin, Victoza and glimepiride on hold HbA1c 8.8 Continue Lantus sliding scale Monitor BS Hypothyroidism. Continue Synthroid. Hyperlipidemia. Continue statin. Hypertension. BP fluctuates Continue amlodipine Will hold losartan due to elevate creatine Diastolic congestive heart failure Torsemide is on hold. Will monitor closely for fluid overload Deep venous thrombosis On heparin subq Subjective Pt was seen and examined Lying in bed with no distress with at bedside Pt said that she is in so much pain She said that her pain is moslty in her left flank area Pt said that the CUSTOMER SERVICE CLERK pump does not seem to work Denies any chest pain, palpitation, dizziness and SOB Physical Exam Vital Signs (Past 24 Hours): Last Vital Signs Temp 36.9 C 07/30/18 15:41 Pulse 77 07/30/18 15:41 Resp 18 07/30/18 15:41 BP 146/78 H 07/30/18 15:41 Pulse Ox 97 07/30/18 15:41 Physical Exam: General- No acute distress Head- atraumatic Eyes- PERRL, EOMI, ENT- oropharynx clear Neck- supple, no JVD Lungs- clear to auscultation Heart- regular rhythm; no murmur Abdomen- normal bowel sounds, soft, nontender Extremities- no calf tenderness Neuro- alert, oriented x 3; PERRL, EOMI; no facial palsy; no dysarthria Skin- warm & dry
--- NOTE | 2018-07-30 18:52 | Nephrology Consultation ---
Date of Consultation July 30, 2018 Assessment & Plan (1) Left renal mass: Patient with left renal carcinoma status post left nephrectomy. Her creatinine has increased to 2 as expected due to reduced renal mass. Will monitor renal function to establish new baseline. Patient is just postop day 1 and still recovering from the surgery. 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 Baseline creatinine of 1.7. She is status post left nephrectomy. New baseline is likely to be higher. Creatinine today of 2. Her electrolytes are stable with no signs of volume overload. Monitor input output and daily BMP. (3) Hypertension: Her blood pressure is slightly above target but this could be due to pain. Monitor BP daily. If systolic blood pressures above 150, would resume amlodipine History of Present Illness Reason for Consultation: CKD stage 3 status post left nephrectomy due to left renal mass Requesting Physician: Marcial Carvajal MD Attending Physician: Marcial Carvajal MD History of Present Illness This is a 68-year-old female with history of type 2 diabetes, hypertension, CKD stage III with baseline creatinine of 1.7 who was recently found to have left renal carcinoma as an incidental finding on CT scan done for evaluation of renal artery stenosis. She was urgently referred to urology. She is status post left nephrectomy on 07/29/2018. This morning she is complaining of severe pain at the incision site. She also has a sore throat in setting of anesthesia. She has a Garcia catheter. Her creatinine is up to 2. No shortness of breath, no vomiting, no diarrhea and no lower extremity swelling. Allergies Allergy/AdvReac Type Severity Reaction Status Date / Time bacitracin Allergy SWELLING Verified 07/29/18 05:44 [From Neosporin FROM EYE ([id number])] DROPS neomycin Allergy SWELLING Verified 07/29/18 05:44 [From Neosporin FROM EYE ([id number])] DROPS polymyxin B Allergy SWELLING Verified 07/29/18 05:44 [From Neosporin FROM EYE ([id number])] DROPS Home Medications Home Medications Medication Instructions Recorded Confirmed Type albuterol sulfate [Ventolin HFA] 2 puff INHALATION Q4H PRN 07/26/18 07/26/18 History amlodipine 5 mg PO DAILY 07/26/18 07/29/18 History ascorbic acid (vitamin C) [Vitamin 1 g PO DAILY 07/26/18 07/29/18 History C] aspirin 81 mg PO DAILY 07/26/18 07/29/18 History calcium carbonate-vitamin D3 1 tab PO DAILY 07/26/18 07/29/18 History [Caltrate 600 + D] ferrous gluconate 324 mg PO DAILY 07/26/18 07/29/18 History fluticasone propionate 1 spray INTRANASAL DAILY 07/26/18 07/29/18 History glimepiride 4 mg PO QAM 07/26/18 07/29/18 History insulin glargine [Lantus U-100 10 unit SUBCUT HS 07/26/18 07/29/18 History Insulin] levothyroxine 125 mcg PO QAM 07/26/18 07/29/18 History liraglutide [Victoza 2-Elliot] 1.2 mg SUBCUT DAILY 07/26/18 07/29/18 History losartan 100 mg PO DAILY 07/26/18 07/29/18 History metformin 1,000 mg PO BID 07/26/18 07/29/18 History naproxen 500 mg PO BID PRN 07/26/18 07/29/18 History rosuvastatin 5 mg PO HS 07/26/18 07/29/18 History torsemide 40 mg PO DAILY 07/29/18 07/29/18 History Patient History Social History Preferred Language: Polish Communication Ability: Effective Ortho Assistant Required: No Beliefs That Will Affect Care: None Current Living Situation: Spouse Other Information That Helps Us Care for You: No Feels Safe at Home: Yes Safety Concerns: Feels Safe At This Time Smoking Status: Former smoker Hx Alcohol Use: No Hx Substance Use: No Review of Systems All other systems were reviewed and negative except as noted in HPI Physical Exam Vital Signs (Past 24 Hours): Last Vital Signs Temp 36.9 C 07/30/18 15:41 Pulse 77 07/30/18 15:41 Resp 18 07/30/18 15:41 BP 146/78 H 07/30/18 15:41 Pulse Ox 97 07/30/18 15:41 Physical Exam: General exam: Appears comfortable, no acute distress HEENT: Pupils are equal and reactive to light Neck: No JVD, neck is supple trachea is midline Respiratory system: Clear breath sounds bilaterally. Gastrointestinal: Abdomen is soft, non distended, non tender, bowel sounds are present. Surgical wound the left lower abdomen CVS: Regular rate and rhythm. No murmurs, rubs or gallops Musculoskeletal: No joint or muscle tenderness Extremities: Non tender, no edema, peripheral pulses are present Neuro: Oriented, no tremors, no focal neurological deficits Skin: No rashes Results & Data Laboratory Results Sodium 133, potassium 3.6, BUN 32, creatinine of 2
[2018-07-30] MEDS: ROSUVASTATIN CALCIUM 5 MG TAB PO SCH (21:19)
[2018-07-30] MEDS: INSULIN GLARGINE SOLOSTAR 100 UNITS/ML 3 ML PEN SC SCH (21:32)
[2018-07-31] MEDS: LEVOTHYROXINE SODIUM 125 MCG TABLET PO SCH (05:27)
[2018-07-31] MEDS: LACTATED RINGER'S 1,000 ML IV SCH ×3 (05:27→22:30)
[2018-07-31 07:08] LABS: Basophils # (auto) 0.02 K/uL (0-0.2); Basophils % (auto) 0.2 %; Eosinophils # (auto) 0.13 K/uL (0-0.5); Eosinophils % (auto) 1.5 %; Hematocrit (blood only) 29.3 % (37-47); Hemoglobin 9.8 g/dL (12.0-16.0); Immature Granulocytes # (auto) 0.03 K/uL (0.00-0.02); Immature Granulocytes % (auto) 0.3 %; Lymphocytes % (auto) 16.2 %; Mean Corpuscular Hgb Conc 33.4 g/dL (32-36); Mean Platelet Volume 10.1 fL (7.4-10.4); Monocytes # (auto) 0.85 K/uL (0.11-0.59); Monocytes % (auto) 9.8 %; Neutrophils # (auto) 6.21 K/uL (1.4-6.5); Platelet Count 160 K/uL (130-400); RDW Coefficient of Variation 14.2 % (11.5-14.5); RDW Standard Deviation 45.7 fL (36.4-46.3); Red Blood Count 3.33 M/uL (4.2-5.4); White Blood Count 8.64 K/uL (4.8-10.8)
[2018-07-31] MEDS: HYDROmorphone HCL 0.5MG/ML 50 ML CASSETTE IV PRN (07:09)
[2018-07-31 07:34] LABS: BUN Creatinine Ratio 12.5 (10-20); Calcium 9.3 mg/dl (8.5-10.1); Creatinine Clr Calc Pharmacy 34.5 ml/min; Est GFR (Non-African American) 24.1; Potassium 3.9 mmol/L (3.5-5.1)
[2018-07-31] MEDS: ASCORBIC ACID 500 MG TAB PO SCH (09:14)
[2018-07-31] MEDS: DOCUSATE SODIUM 100 MG CAP PO SCH ×2 (09:14→21:00)
[2018-07-31] MEDS: FERROUS GLUCONATE 324 MG TAB PO SCH (09:14)
[2018-07-31] MEDS: AMLODIPINE BESYLATE 5 MG TAB PO SCH (09:14)
[2018-07-31] MEDS: CALCIUM 600MG + VIT D 400 IU TAB PO SCH (09:15)
[2018-07-31] MEDS: HEPARIN SOD 5,000 UNIT/0.5 ML VIAL SQ SCH ×2 (09:16→21:09)
[2018-07-31] MEDS: INSULIN ASPART 100 UNITS/ML 3 ML PEN SC SCH ×4 (09:17→21:06)
[2018-07-31] MEDS: FAMOTIDINE 20 MG in SYRINGE 3 ML IV SCH ×2 (09:25→21:00)
--- NOTE | 2018-07-31 11:35 | Pharmacy Report ---
Pharmacy Glycemic Short Note 2 - Date of Service July 31, 2018 - Glycemic Short BSG Results (Last 24 hours): 07/30/18 07/30/18 07/30/18 12:15 18:31 21:26 Glucose POC Glucose 202 H 169 H 134 H 07/31/18 07/31/18 06:34 07:57 Glucose 87 POC Glucose 87 ASSESSMENT: * BSGs fairly well controlled: [id number]/dL. POD: 2 s/p nephrectomy. Clears continue. I do not anticipate any acute fluctuations in her insulin r equirements. Please see below for continuation of her care plan: PLAN FOR INPATIENT GLYCEMIC CONTROL: * Hold outpatient oral diabetes medications * Basal insulin * Lantus scale SQ HS * BSGs </=120mg/dL give 10 units * BSGs 121-180mg/dL give 15 units * BSGs >180mg/dL give 20 units * Bolus insulin - loosened * NovoLog per scale ACHS or Q6hrs while NPO * Goal Range: Low 110 mg/dL - High 140 mg/dL * Correction Factor: 20 mg/dL/unit * Nutritional / Prandial insulin per carb ratio of 1 unit per 6 grams CHO consumed PLAN FOR DISCHARGE: * Her GFR continues to run <30cc/min/1.73 this is a contraindication to Metformin. If her renal fxn does not improve, I strongly encourage discontinuation of her home Metformin. Further, pt's with renal dx are more sensitive to the hypoglycemic effects of glimepiride. I would consider decreasing her dose slightly if this medication is to continue. * Increase lantus to 15 units HS and further titrations per outpt provider * If correctional insulin is being considered (in place of glimepiride) I would start with Novolog CF: 20 CR: 6.
--- NOTE | 2018-07-31 11:40 | Urology Progress Note ---
Date of Service July 31, 2018 Assessment & Plan (1) Left renal mass: POD #2 s/p left nephrectomy - ambulate - dc COOK PIE - convert to percocet - diet - maybe home tomorrow Subjective Progressing slowly since her nephrectomy - no BM - tolerating clear liquids - anxious for food - pain is improved - ok with transitioning to oral pain meds Review of Systems All systems reviewed & are unremarkable except as noted in HPI & below Physical Exam Vital Signs (Past 24 Hours): Last Vital Signs Temp 36.8 C 07/31/18 07:23 Pulse 85 07/31/18 07:23 Resp 16 07/31/18 07:23 BP 125/47 L 07/31/18 07:23 Pulse Ox 95 07/31/18 07:23 Physical Exam: NAD AAOx3 no resp distress rrr abd soft - incisions appropriate mild edema
[2018-07-31] MEDS: OXYCODONE/ACETAMINOPHEN 5mg/325mg TAB PO PRN (16:05)
--- NOTE | 2018-07-31 19:25 | Hospitalist Progress Note ---
Date of Service July 31, 2018 Assessment & Plan (1) Left renal mass: S/P day 2 Left-sided hand-assisted laparoscopic radical nephrectomy and retroperitoneal dissection by Dr. Carvajal Continue pain control Incentive spirometry Hbg 9.8 Acute on chronic CKD stage 3 Last creatinine was 1.6 on 08/06 Creatinine increased to 2.06 Avoid nephrotoxic agents IVF decreased Nephrology consulted- waiting for input Type 2 diabetes. Metformin, Victoza and glimepiride on hold HbA1c 8.8 Continue Lantus sliding scale Monitor BS Hypothyroidism. Continue Synthroid. Hyperlipidemia. Continue statin. Hypertension. BP fluctuates Continue amlodipine Continue holding losartan due to elevate creatine Diastolic congestive heart failure Decreased IVF Torsemide on hold Will monitor closely for fluid overload Deep venous thrombosis On heparin subq Subjective Pt was seen and examined Sitting in chair with no distress with Pt said that pain improves Denies any chest pain, palpitation and SOB Physical Exam Vital Signs (Past 24 Hours): Last Vital Signs Temp 37.0 C 07/31/18 15:26 Pulse 83 07/31/18 15:26 Resp 20 07/31/18 15:26 BP 156/75 H 07/31/18 15:26 Pulse Ox 96 07/31/18 15:26 Physical Exam: General- No acute distress Head- atraumatic Eyes- PERRL, EOMI, ENT- oropharynx clear Neck- supple, no JVD Lungs- clear to auscultation Heart- regular rhythm; no murmur Abdomen- normal bowel sounds, soft, nontender Extremities- no calf tenderness Neuro- alert, oriented x 3; PERRL, EOMI; no facial palsy; no dysarthria Skin- warm & dry
[2018-07-31] MEDS: ROSUVASTATIN CALCIUM 5 MG TAB PO SCH (21:00)
[2018-07-31] MEDS: INSULIN GLARGINE SOLOSTAR 100 UNITS/ML 3 ML PEN SC SCH (21:08)
[2018-08-01] MEDS: HYDROmorphone INJ 0.5 MG/0.5 ML SYR IV PRN (06:08)
[2018-08-01] MEDS: ONDANSETRON INJ 2 MG/ML 2 ML VIAL IV PRN (06:08)
[2018-08-01] MEDS: LACTATED RINGER'S 1,000 ML IV SCH (06:15)
[2018-08-01 06:50] LABS: BUN Creatinine Ratio 12.1 (10-20); Est GFR (African American) 24.6; Est GFR (Non-African American) 21.2; Potassium 4.1 mmol/L (3.5-5.1)
[2018-08-01 06:53] LABS: Hematocrit (blood only) 30.1 % (37-47); Hemoglobin 9.9 g/dL (12.0-16.0); Mean Corpuscular Hgb Conc 32.9 g/dL (32-36); Mean Corpuscular Volume 89.1 fL (80-100); Mean Platelet Volume 10.2 fL (7.4-10.4); Platelet Count 178 K/uL (130-400); RDW Coefficient of Variation 14.2 % (11.5-14.5); RDW Standard Deviation 46.1 fL (36.4-46.3); Red Blood Count 3.38 M/uL (4.2-5.4); White Blood Count 9.59 K/uL (4.8-10.8)
[2018-08-01 06:54] LABS: Basophils # (auto) 0.03 K/uL (0-0.2); Basophils % (auto) 0.3 %; Eosinophils # (auto) 0.11 K/uL (0-0.5); Eosinophils % (auto) 1.1 %; Immature Granulocytes # (auto) 0.04 K/uL (0.00-0.02); Immature Granulocytes % (auto) 0.4 %; Lymphocytes # (auto) 1.21 K/uL (1.2-3.4); Lymphocytes % (auto) 12.6 %; Monocytes # (auto) 0.67 K/uL (0.11-0.59); Neutrophils # (auto) 7.53 K/uL (1.4-6.5); Neutrophils % (auto) 78.6 %
[2018-08-01] MEDS: LEVOTHYROXINE SODIUM 125 MCG TABLET PO SCH (07:41)
--- NOTE | 2018-08-01 08:40 | Urology Progress Note ---
Date of Service August 01, 2018 Assessment & Plan (1) Left renal mass: s/p L nephrectomy - slow progression - she has very nearly met all criteria for d/c, but subjectively does not feel she is quite ready - HL IVF - ambulate more, try to test herself today - hopefully d/c home tomorrow Subjective continuing to slowly progress [employer]IC[employer] d/c'ed overnight - ok with percocet - ambulated tolerating a diet mild nausea this AM - does not think she is ready to go home just yet Physical Exam Vital Signs (Past 24 Hours): Last Vital Signs Temp 37.0 C 08/01/18 08:07 Pulse 89 08/01/18 08:07 Resp 18 08/01/18 08:07 BP 142/65 H 08/01/18 08:07 Pulse Ox 95 08/01/18 08:07 Physical Exam: NAD AAOx3 no resp distress RRR abd soft - incisions appropriate
[2018-08-01] MEDS: CALCIUM 600MG + VIT D 400 IU TAB PO SCH (09:05)
[2018-08-01] MEDS: AMLODIPINE BESYLATE 5 MG TAB PO SCH (09:06)
[2018-08-01] MEDS: DOCUSATE SODIUM 100 MG CAP PO SCH ×2 (09:06→20:46)
[2018-08-01] MEDS: FERROUS GLUCONATE 324 MG TAB PO SCH (09:06)
[2018-08-01] MEDS: FAMOTIDINE 20 MG in SYRINGE 3 ML IV SCH ×2 (09:07→20:46)
[2018-08-01] MEDS: ASCORBIC ACID 500 MG TAB PO SCH (09:07)
[2018-08-01] MEDS: HEPARIN SOD 5,000 UNIT/0.5 ML VIAL SQ SCH ×2 (09:08→20:58)
[2018-08-01] MEDS: INSULIN ASPART 100 UNITS/ML 3 ML PEN SC SCH ×4 (09:10→20:57)
[2018-08-01] MEDS: OXYCODONE/ACETAMINOPHEN 5mg/325mg TAB PO PRN ×3 (10:34→20:49)
--- NOTE | 2018-08-01 11:31 | Pharmacy Report ---
Pharmacy Glycemic Short Note 2 - Date of Service August 01, 2018 - Glycemic Short BSG Results (Last 24 hours): 07/31/18 07/31/18 07/31/18 12:03 17:23 20:13 Glucose POC Glucose 118 H 204 H 201 H 08/01/18 08/01/18 05:55 08:24 Glucose 165 H POC Glucose 171 H ASSESSMENT: * Pt has been receiving ~ 50 units of insulin per day with near adequate control. * Oral outpatient antidiabetic agents on hold for admission. Rx with Lantus + NovoLog * 20 units of basal insulin * 30 units of prandial/correctional insulin * AM fasting BSG above goal range at 171mg/dl --> will increase basal insulin dosing * Post-prandial BSGs elevated at 204, 201mg/dl --> will tighten CF/CR PLAN FOR INPATIENT GLYCEMIC CONTROL: * Hold outpatient oral diabetes medications * Basal insulin: increase dosing * Lantus scale SQ HS * BSGs 180mg/dl or below give 23 units * BSGs above 180mg/dL give 25 units * Bolus insulin - tighten * NovoLog per scale ACHS or Q6hrs while NPO * Goal Range: Low 110 mg/dL - High 140 mg/dL * Correction Factor: 15 mg/dL/unit * Nutritional / Prandial insulin per carb ratio of 1 unit per 5 grams CHO consumed PLAN FOR DISCHARGE: * Her GFR continues to run <30cc/min/1.73 this is a contraindication to Metformin. If her renal fxn does not improve, I strongly encourage discontinuation of her home Metformin. Further, pt's with renal dx are more sensitive to the hypoglycemic effects of glimepiride. I would consider decreasing her dose slightly if this medication is to continue. * Increase lantus to 15 units HS and further titrations per outpt provider. Dose increase needed for stopping/reducing other oral agents above * If correctional insulin is being considered (in place of glimepiride) I would start with Novolog CF: 20 CR: 6. * Could also consider fixed dosing of Novolog 5-10 units with meals * OK to continue Victoza (liraglutide). No dose adjustment needed with renal impairment
--- NOTE | 2018-08-01 18:36 | Hospitalist Progress Note ---
Date of Service August 01, 2018 Assessment & Plan (1) Left renal mass: S/P day 2 Left-sided hand-assisted laparoscopic radical nephrectomy and retroperitoneal dissection by Dr. Carvajal Continue pain control Incentive spirometry Hbg 9.9 Acute on chronic CKD stage 3 Last creatinine was 1.6 on 08/06 Creatinine increased to 2.2 Avoid nephrotoxic agents Losartan and torsemide on hold Nephrology on board Monitor BMP Type 2 diabetes. Metformin, Victoza and glimepiride on hold HbA1c 8.8 Continue Lantus sliding scale Monitor BS Hypothyroidism. Continue Synthroid. Hyperlipidemia. Continue statin. Hypertension. BP fluctuates Continue amlodipine Continue holding losartan due to elevate creatine Diastolic congestive heart failure Decreased IVF Torsemide on hold Will monitor closely for fluid overload Deep venous thrombosis On heparin subq Subjective Pt was seen and examined Sitting in chair with no distress Pt said that pain improves She said that she walked in the hallway with no distress Denies any chest pain, palpitation and SOB Physical Exam Vital Signs (Past 24 Hours): Last Vital Signs Temp 36.8 C 08/01/18 15:26 Pulse 79 08/01/18 15:26 Resp 16 08/01/18 15:26 BP 143/76 H 08/01/18 15:26 Pulse Ox 20 L 08/01/18 15:26 Physical Exam: General- No acute distress Head- atraumatic Eyes- PERRL, EOMI, ENT- oropharynx clear Neck- supple, no JVD Lungs- clear to auscultation Heart- regular rhythm; no murmur Abdomen- normal bowel sounds, soft, nontender Extremities- no calf tenderness Neuro- alert, oriented x 3; PERRL, EOMI; no facial palsy; no dysarthria Skin- warm & dry
--- NOTE | 2018-08-01 19:06 | Nephrology Progress Note ---
Date of Service August 01, 2018 Assessment & Plan (1) Left renal mass: Patient with left renal carcinoma status post left nephrectomy. Her creatinine has increased to 2.3 as expected due to reduced renal mass. Will monitor renal function to establish new baseline. 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 Baseline creatinine of 1.7. She is status post left nephrectomy. New baseline is likely to be significantly higher. Creatinine today of 2.3. Her electrolytes are stable with no signs of volume overload. Monitor input output and daily BMP. >> need to ensure f/u w/ Dr Ruelas is resceduled > 2-4 wks after d/c w/ weekly bmp after d/c (3) Hypertension: Her blood pressure is slightly above target but this could be due to pain. Monitor BP daily. If systolic blood pressures above 150, would resume amlodipine Subjective seen on rounds today 1130 > family at bedside ; pt in considerable pain LLQ(waiting for med to kick in; c/o bleeding from skin tear on her backside/L inner thigh Physical Exam Vital Signs (Past 24 Hours): Last Vital Signs Temp 36.8 C 08/01/18 15:26 Pulse 79 08/01/18 15:26 Resp 16 08/01/18 15:26 BP 143/76 H 08/01/18 15:26 Pulse Ox 20 L 08/01/18 15:26 Constitutional: well developed and well nourished up in chair on ra a& 0 x 3 uncomfortable and occasional dry cough Eyes: EOM intact bilaterally ENMT: Ears: no external ear abnormality Nose: no external nose abnormality Mouth: + dry oral mucous membranes Neck: no nuchal rigidity Respiratory: normal respiratory effort Auscultation: + diminished lung sounds Cardiovascular: Rate/Rhythm: regular rate and regular rhythm Extremities: + edema (trace BL) Gastrointestinal (Abdomen): Inspection/Auscultation: normal bowel sounds Percussion/Palpation: abdomen soft; abdomen nontender LLQ incision cdi Musculoskeletal: Extremities: strength 5/5 throughout Skin: no rashes, warm and dry Neurologic: lindquist, fluent speech, no tremor Psychiatric: Orientation: alert and oriented x 3 Speech: normal rate/rhythm/volume of speech Affect: + anxious affect and + flat affect Genitourinary: no cheng Results & Data Laboratory Results Abnormal lab results 07/31/18 08/01/18 08/01/18 Range/Units 20:13 05:55 05:55 RBC 3.38 L (4.2-5.4) M/uL Hgb 9.9 L (12.0-16.0) g/dL Hct 30.1 L (37-47) % Immature Gran # (Auto) 0.04 H (0.00-0.02) K/uL Neut # (Auto) 7.53 H (1.4-6.5) K/uL Bryan # (Auto) 0.67 H (0.11-0.59) K/uL Sodium 135 L (136-145) mmol/L BUN 28 H (7-18) mg/dl Creatinine 2.29 H (0.6-1.2) mg/dl Glucose 165 H (70-99) mg/dl POC Glucose 201 H (70-99) 08/01/18 08/01/18 08/01/18 Range/Units 08:24 12:04 17:45 RBC (4.2-5.4) M/uL Hgb (12.0-16.0) g/dL Hct (37-47) % Immature Gran # (Auto) (0.00-0.02) K/uL Neut # (Auto) (1.4-6.5) K/uL Bryan # (Auto) (0.11-0.59) K/uL Sodium (136-145) mmol/L BUN (7-18) mg/dl Creatinine (0.6-1.2) mg/dl Glucose (70-99) mg/dl POC Glucose 171 H 167 H 172 H (70-99)
[2018-08-01] MEDS: ROSUVASTATIN CALCIUM 5 MG TAB PO SCH (20:46)
[2018-08-01] MEDS: INSULIN GLARGINE SOLOSTAR 100 UNITS/ML 3 ML PEN SC SCH (20:57)
[2018-08-02] MEDS: OXYCODONE/ACETAMINOPHEN 5mg/325mg TAB PO PRN ×2 (03:11→09:06)
[2018-08-02] MEDS: LEVOTHYROXINE SODIUM 125 MCG TABLET PO SCH (06:08)
[2018-08-02 07:30] LABS: Basophils # (auto) 0.02 K/uL (0-0.2); Basophils % (auto) 0.2 %; Eosinophils # (auto) 0.25 K/uL (0-0.5); Eosinophils % (auto) 3.1 %; Hematocrit (blood only) 29.6 % (37-47); Hemoglobin 9.8 g/dL (12.0-16.0); Immature Granulocytes # (auto) 0.04 K/uL (0.00-0.02); Immature Granulocytes % (auto) 0.5 %; Lymphocytes # (auto) 1.53 K/uL (1.2-3.4); Lymphocytes % (auto) 18.7 %; Mean Corpuscular Hgb Conc 33.1 g/dL (32-36); Mean Corpuscular Volume 88.9 fL (80-100); Mean Platelet Volume 9.8 fL (7.4-10.4); Monocytes # (auto) 0.86 K/uL (0.11-0.59); Monocytes % (auto) 10.5 %; Neutrophils # (auto) 5.49 K/uL (1.4-6.5); Platelet Count 186 K/uL (130-400); RDW Coefficient of Variation 14.2 % (11.5-14.5); RDW Standard Deviation 46.5 fL (36.4-46.3); Red Blood Count 3.33 M/uL (4.2-5.4); White Blood Count 8.19 K/uL (4.8-10.8)
[2018-08-02 07:41] LABS: Partial Thromboplastin Ratio 0.9; Partial Thromboplastin Time 25.6 Seconds (21.0-31.0)
[2018-08-02 07:47] LABS: Calcium 8.9 mg/dl (8.5-10.1); Creatinine Clr Calc Pharmacy 30.4 ml/min; Est GFR (Non-African American) 20.7; Potassium 3.6 mmol/L (3.5-5.1)
--- NOTE | 2018-08-02 08:07 | Nephrology Progress Note ---
Date of Service August 02, 2018 Assessment & Plan (1) CKD stage 3 due to type 2 diabetes mellitus: CKD stage III from diabetic nephropathy w/ prior to nephrectomy baseline creatinine of 1.7. She is status post left nephrectomy. New baseline is likely to be significantly higher. Creatinine today again 2.3. Her electrolytes are stable with no signs of volume overload. Monitor input output and daily BMP. this may be her new baseline -some lower UOP today but note missed shifts in I/O recording > do not believe this is accurate >> need to ensure f/u w/ Dr Ruelas is rescheduled > 2-4 wks after d/c w/ weekly bmp x 3 (labs and appt to be ordered by me in [employer] system) after d/c -also, cont amlodipine at d/c, cont torsemide but make it MWF only; hold losartan pending pcp / nephro f/u -also recommended holding metformin > hospitalist lowered glimepride dose at d/c too for close pcp f/u (2) Hypertension: Her blood pressure improved today; has been elevated suspect d/t pain. Monitor BP daily. amlodipine resumed Subjective seen on rounds this am; still w/ significant pain but feels improved; eating. still dry cough. no sob, no voidign c/o, no edema concenrs, not sob, no chest pain Physical Exam Vital Signs (Past 24 Hours): Last Vital Signs Temp 36.7 C 08/01/18 23:13 Pulse 71 08/01/18 23:13 Resp 16 08/01/18 23:13 BP 120/62 08/01/18 23:13 Pulse Ox 92 08/01/18 23:13 Constitutional: well developed and well nourished on RA up in chair A& 0 x 3; occasional dry cough in exam Eyes: EOM intact bilaterally ENMT: Ears: no external ear abnormality Nose: no external nose abnormality Mouth: + dry oral mucous membranes Neck: no nuchal rigidity Respiratory: normal respiratory effort Auscultation: + diminished lung so unds Cardiovascular: Rate/Rhythm: regular rate and regular rhythm Extremities: + edema (trace BL) Gastrointestinal (Abdomen): Inspection/Auscultation: normal bowel sounds Percussion/Palpation: abdomen soft; abdomen nontender Musculoskeletal: Extremities: strength 5/5 throughout Skin: no rashes, warm and dry Neurologic: lindquist, fluent speech Psychiatric: Orientation: alert and oriented x 3 Speech: normal rate/rhythm/volume of speech Affect: + anxious affect and + flat affect Results & Data Laboratory Results Abnormal lab results 08/01/18 08/02/18 08/02/18 Range/Units 20:22 07:15 07:15 RBC 3.33 L (4.2-5.4) M/uL Hgb 9.8 L (12.0-16.0) g/dL Hct 29.6 L (37-47) % RDW Std Deviation 46.5 H (36.4-46.3) fL Immature Gran # (Auto) 0.04 H (0.00-0.02) K/uL Benson # (Auto) 0.86 H (0.11-0.59) K/uL Sodium 134 L (136-145) mmol/L BUN 30 H (7-18) mg/dl Creatinine 2.34 H (0.6-1.2) mg/dl Glucose 152 H (70-99) mg/dl POC Glucose 193 H (70-99) 08/02/18 08/02/18 Range/Units 08:12 12:16 RBC (4.2-5.4) M/uL Hgb (12.0-16.0) g/dL Hct (37-47) % RDW Std Deviation (36.4-46.3) fL Immature Gran # (Auto) (0.00-0.02) K/uL Benson # (Auto) (0.11-0.59) K/uL Sodium (136-145) mmol/L BUN (7-18) mg/dl Creatinine (0.6-1.2) mg/dl Glucose (70-99) mg/dl POC Glucose 157 H 256 H (70-99) (1) Hypertension Hypertension type: essential hypertension Qualified Code(s): I10 - Essential (primary) hypertension
--- NOTE | 2018-08-02 08:34 | Urology Progress Note ---
Date of Service August 02, 2018 Assessment & Plan (1) Left renal mass: (2) Renal insufficiency: 68yo F POD #4 Left HALN, retroperitoneal LND. VSS, afebrile. Labs reviewed. Feeling better today. Tolerating PO, small appetite but no emesis. Voiding spontaneously without difficulty. Discussed follow-up with Dr. Wilkinson, lorin to discharge home from their perspective. Plan for weekly BMPs through [employer] system. Plan to f/u with them in 2-4 weeks. Okay to discharge home today. Discharge instructions reviewed with pt and family member at bedside. Verbalizes understanding. Subjective 68yo F POD #4 Left HALN, Retroperitoneal LND. Feeling better today. Labs stable, Cr 2.34 today (2.29 yesterday) Still having incisional pain, required Dilaudid this morning. Encouraged to continue with PO options. Ambulated 6 times yesterday. Using IS. Physical Exam Vital Signs (Past 24 Hours): Last Vital Signs Temp 36.7 C 08/02/18 08:04 Pulse 72 08/02/18 08:04 Resp 18 08/02/18 08:04 BP 132/76 08/02/18 08:04 Pulse Ox 98 08/02/18 08:04 Physical Exam: A&Ox3 RRR Abd soft Incisions C/D/I. No erythema, ecchymosis, drainage. Results & Data Laboratory Results Laboratory Results - last 48 hr 07/31/18 07/31/18 07/31/18 12:03 17:23 20:13 WBC RBC Hgb Hct MCV MCH MCHC RDW Std Deviation RDW Coeff of Mary Jo Plt Count MPV Immature Gran % (Auto) Neut % (Auto) Lymph % (Auto) Colbert % (Auto) Eos % (Auto) Baso % (Auto) Immature Gran # (Auto) Neut # (Auto) Lymph # (Auto) Colbert # (Auto) Eos # (Auto) Baso # (Auto) APTT PTT Ratio Sodium Potassium Chloride Carbon Dioxide Anion Gap BUN Creatinine Est Cr Clr Drug Dosing Est GFR ( Amer) Est GFR (Non-Af Amer) BUN/Creatinine Ratio Glucose POC Glucose 118 H 204 H 201 H Calcium 08/01/18 08/01/18 08/01/18 05:55 05:55 08:24 WBC 9.59 RBC 3.38 L Hgb 9.9 L Hct 30.1 L MCV 89.1 MCH 29.3 MCHC 32.9 RDW Std Deviation 46.1 RDW Coeff of Mary Jo 14.2 Plt Count 178 MPV 10.2 Immature Gran % (Auto) 0.4 Neut % (Auto) 78.6 Lymph % (Auto) 12.6 Colbert % (Auto) 7.0 Eos % (Auto) 1.1 Baso % (Auto) 0.3 Immature Gran # (Auto) 0.04 H Neut # (Auto) 7.53 H Lymph # (Auto) 1.21 Colbert # (Auto) 0.67 H Eos # (Auto) 0.11 Baso # (Auto) 0.03 APTT PTT Ratio Sodium 135 L Potassium 4.1 Chloride 103 Carbon Dioxide 25 Anion Gap 7.0 BUN 28 H Creatinine 2.29 H Est Cr Clr Drug Dosing 31.0 Est GFR ( Amer) 24.6 Est GFR (Non-Af Amer) 21.2 BUN/Creatinine Ratio 12.1 Glucose 165 H POC Glucose 171 H Calcium 9.0 08/01/18 08/01/18 08/01/18 12:04 17:45 20:22 WBC RBC Hgb Hct MCV MCH MCHC RDW Std Deviation RDW Coeff of Mary Jo Plt Count MPV Immature Gran % (Auto) Neut % (Auto) Lymph % (Auto) Colbert % (Auto) Eos % (Auto) Baso % (Auto) Immature Gran # (Auto) Neut # (Auto) Lymph # (Auto) Colbert # (Auto) Eos # (Auto) Baso # (Auto) APTT PTT Ratio Sodium Potassium Chloride Carbon Dioxide Anion Gap BUN Creatinine Est Cr Clr Drug Dosing Est GFR ( Amer) Est GFR (Non-Af Amer) BUN/Creatinine Ratio Glucose POC Glucose 167 H 172 H 193 H Calcium 08/02/18 08/02/18 08/02/18 07:15 07:15 07:15 WBC 8.19 RBC 3.33 L Hgb 9.8 L Hct 29.6 L MCV 88.9 MCH 29.4 MCHC 33.1 RDW Std Deviation 46.5 H RDW Coeff of Mary Jo 14.2 Plt Count 186 MPV 9.8 Immature Gran % (Auto) 0.5 Neut % (Auto) 67.0 Lymph % (Auto) 18.7 Colbert % (Auto) 10.5 Eos % (Auto) 3.1 Baso % (Auto) 0.2 Immature Gran # (Auto) 0.04 H Neut # (Auto) 5.49 Lymph # (Auto) 1.53 Colbert # (Auto) 0.86 H Eos # (Auto) 0.25 Baso # (Auto) 0.02 APTT 25.6 PTT Ratio 0.9 Sodium 134 L Potassium 3.6 Chloride 103 Carbon Dioxide 27 Anion Gap 4.0 BUN 30 H Creatinine 2.34 H Est Cr Clr Drug Dosing 30.4 Est GFR ( Amer) 24.0 Est GFR (Non-Af Amer) 20.7 BUN/Creatinine Ratio 13.0 Glucose 152 H POC Glucose Calcium 8.9 08/02/18 08:12 WBC RBC Hgb Hct MCV MCH MCHC RDW Std Deviation RDW Coeff of Mary Jo Plt Count MPV Immature Gran % (Auto) Neut % (Auto) Lymph % (Auto) Colbert % (Auto) Eos % (Auto) Baso % (Auto) Immature Gran # (Auto) Neut # (Auto) Lymph # (Auto) Colbert # (Auto) Eos # (Auto) Baso # (Auto) APTT PTT Ratio Sodium Potassium Chloride Carbon Dioxide Anion Gap BUN Creatinine Est Cr Clr Drug Dosing Est GFR ( Amer) Est GFR (Non-Af Amer) BUN/Creatinine Ratio Glucose POC Glucose 157 H Calcium
[2018-08-02] MEDS: ASCORBIC ACID 500 MG TAB PO SCH (09:06)
[2018-08-02] MEDS: FERROUS GLUCONATE 324 MG TAB PO SCH (09:07)
[2018-08-02] MEDS: AMLODIPINE BESYLATE 5 MG TAB PO SCH (09:07)
[2018-08-02] MEDS: CALCIUM 600MG + VIT D 400 IU TAB PO SCH (09:07)
[2018-08-02] MEDS: DOCUSATE SODIUM 100 MG CAP PO SCH (09:07)
[2018-08-02] MEDS: FAMOTIDINE 20 MG in SYRINGE 3 ML IV SCH (09:08)
[2018-08-02] MEDS: INSULIN ASPART 100 UNITS/ML 3 ML PEN SC SCH ×2 (09:11→12:51)
[2018-08-02] MEDS: HEPARIN SOD 5,000 UNIT/0.5 ML VIAL SQ SCH (09:11)
--- NOTE | 2018-08-02 14:24 | Hospitalist Progress Note ---
Date of Service August 02, 2018 Assessment & Plan (1) Left renal mass: S/P day 4 Left-sided hand-assisted laparoscopic radical nephrectomy and retroperitoneal dissection by Dr. Carvajal Continue pain control Incentive spirometry Hbg 9.8 Stable Acute on chronic CKD stage 3 Last creatinine was 1.6 on 08/06 Creatinine increased to 2.3 Avoid nephrotoxic agents Case discussed with appraiser oil and water Hold Losartan for now torsemide Changed to Thursday, Thu, Thursday Nephrology on board Check BMP weekly x3 Follow up with nephrology Type 2 diabetes. Will hold Metformin on discharge Will decrease glimepiride to 2mg daily on discharge HbA1c 8.8 Continue Lantus and victoza on discharge Monitor BS and bring blood sugar log on discharge Hypothyroidism. Continue Synthroid. Hyperlipidemia. Continue statin. Hypertension. BP fluctuates Case discussed with nephrology recommended to continue amlodipine daily and torsemide on Thu, Thu, Thursday Will continue hold Losartan, appraiser oil and water or PCP will resume it at the next follow appt Monitor BP Diastolic congestive heart failure Resumed Torsemide every other day Monitor closely Deep venous thrombosis On heparin subq Disposition As per urology Subjective Pt was seen an examined Sitting in bed with no distress Pt said that pain improves Denies any chest pain, palpitation, dizziness and SOB Physical Exam Vital Signs (Past 24 Hours): Last Vital Signs Temp 36.7 C 08/02/18 11:26 Pulse 68 08/02/18 11:26 Resp 18 08/02/18 11:26 BP 134/80 08/02/18 11:26 Pulse Ox 94 08/02/18 11:26 Physical Exam: General- No acute distress Head- atraumatic Eyes- PERRL, EOMI, ENT- oropharynx clear Neck- supple, no JVD Lungs- clear to auscultation Heart- regular rhythm; no murmur Abdomen- normal bowel sounds, soft, nontender Extremities- no calf tenderness Neuro- alert, oriented x 3; PERRL, EOMI; no facial palsy; no dysarthria Skin- warm & dry
--- NOTE | 2018-08-21 11:29 | Discharge Summary ---
Date of Service August 21, 2018 Admission HPI Per Admitting Provider 68 yo female with a left renal mass for L HALN due to central location of her mass. Please see H&P for further details. Admission Exam (Per Admitting) Constitutional + morbidly obese ENMT Ears: no external ear abnormality Neck trachea midline; no anterior neck swelling Respiratory no respiratory distress and no labored breathing Cardiovascular Vessels: radial pulses present Gastrointestinal (Abdomen) Percussion/Palpation: abdomen soft; abdomen nontender and no guarding Skin normal turgor Neurologic CN's II-XI intact bilaterally and awake; not obtunded Psychiatric Orientation: oriented x 3 Lymphatic no lymphadenopathy Specialty Data Urology Patient underwent uncomplicated L HALN as planned. Postop diet and activity were slowly advanced until by POD#4 patient was ambulatory, comfortable on oral pain meds and tolerating a regular diet. Please see progress notes for further details. Discharge Data Consultations 07/29/18 11:44 Consult Hospitalist Routine Consult Nephrology Routine Procedures Performed Operation Date: 07/29/18 07:15 Actual Procedures p Left Laparoscopic Hand Assisted Radical Nephrectomy, Retroperitoneal Dissectio n(Left) - Marcial Carvajal MD Hospital Course (1) Left renal mass: s/p L nephrectomy - slow progression - she has very nearly met all criteria for d/c, but subjectively does not feel she is quite ready - HL IVF - ambulate more, try to test herself today - hopefully d/c home tomorrow (2) Renal insufficiency: 68yo F POD #4 Left HALN, retroperitoneal LND. VSS, afebrile. Labs reviewed. Feeling better today. Tolerating PO, small appetite but no emesis. Voiding spontaneously without difficulty. Discussed follow-up with lorin Sheikh to discharge home from their perspective. Plan for weekly BMPs through [employer]. Plan to f/u with them in 2-4 weeks. Okay to discharge home today. Discharge instructions reviewed with pt and family member at bedside. Verbalizes understanding. Discharge Instructions See DC instruction list and meds for further details.
--- NOTE | 2018-08-23 06:35 | Coding Query ---
PATHOLOGY To promote full compliance with coding requirements relating to patient care, physician participation is requested in all cases of civil engineering design draftsperson uncertainty. Please assist us with the question(s) below: Please review the Pathology report and please document any relevant diagnosis(es) below: Diagnosis(es): Renal cell carcinoma Thank you Sarah HINSON
== END 2018-08-02 16:20 | disposition home or self-care (01) | DRG 657 ==
LOC: ASU 04:55 → 3W 10:00